=== PATIENT | female | born 1935 | race Caucasian/White ===

== ENCOUNTER 2021-09-13 21:33 | Emergency (ER) | payer MEDICARE ==
[~2021-09-13] VITALS: Ht 149.9 cm; Wt 60.0 kg
[2021-09-14 01:24] VITALS: BP 180/82
== END 2021-09-14 01:41 | disposition home or self-care (01) ==
LOC: M ED 21:33
DX: S81.812A Laceration without foreign body, left lower leg, initial encounter (principal); W10.8XXA Fall (on) (from) other stairs and steps, initial encounter; Y92.89 Other specified places as the place of occurrence of the external cause; E11.9 Type 2 diabetes mellitus without complications; I25.2 Old myocardial infarction; F33.9 Major depressive disorder, recurrent, unspecified; K21.9 Gastro-esophageal reflux disease without esophagitis; Z87.19 Personal history of other diseases of the digestive system; Z95.5 Presence of coronary angioplasty implant and graft; Z88.1 Allergy status to other antibiotic agents